=== PATIENT | male | born 1940 | race Caucasian/White ===

== ENCOUNTER 2017-07-17 03:01 | Inpatient (IN) | payer MEDICARE, BC ==
[~2017-07-17] VITALS: Ht 180.3 cm; Wt 126.3 kg
[2017-07-17] VITALS (18 sets, daily range): BP systolic 73–148; BP diastolic 46–91
[~2017-07-17 03:01] MED LIST: ADLT ASA LOW81 MG PO; ALBUTEROL SUL0.083 % IN; ALLOPURINOL300 MG PO; ALPH-E400 UNIT PO; ATENOLOL25 MG PO; AUGMENTIN875TAB PO; BACTRIM DS1 TAB PO; CENTRU2 PO; CETIRIZ/PSE1 TAB PO; CHERATUSSI1 OR; CHILD ASA81 MG PO; CIPROFLOXACN500 MG PO; DILAUDID 2MG2 MG/TA1 PO; DURAGESIC25 MCG/PAT TD; ELIQUIS5 MG PO; FA-80.8 MG PO; FLEXERIL10 MG PO; FLEXERIL5 MG PO; FLONASE NASAL50 MCG; FLUARIX QUADRIV1 INJ IM; FOLIC ACID1 MG PO; GLIPIZIDE5 MG PO; HYDRALAZINE25 MG PO; HYDRALAZINE50 MG PO; HYDROCHLOROT12.5 MG PO; HYDROCO/APAP1 TA9 PO; ISOSORB MONO30 MG PO; ISOSORBIDE MONO30 MG PO; KLOR-CON 1010 ME1 PO; KP FOLIC ACID800 MCG PO; LASIX 40 MG TAB40 MG PO; LASIX 40 MG40 MG/TAB PO; LEVAQUIN250 MG PO; LEVAQUIN500 MG PO; LEVAQUIN750 MG PO; LIDODERM5 % TD; LISINOP/HCTZ1 TAB PO; LISINOPRIL10 MG PO; LOMOTIL2.5 MG PO; LOPRESSOR50 M1 PO; LORTAB 10 PO; LORTAB 7.5 PO; LORTAB 7.57.5 MG PO; METFORMIN HCL1000 M1 PO; METFORMIN500 MG PO; METOLAZONE2.5 MG PO; METOPROLOL SUCC50 MG PO; MICRO-K10 ME1 PO; PERCOCET 5/325M1 TAB PO; PERSANTINE25 MG PO; POTASSIUM GLUC595 MG PO; POTASSIUM GLUCO80 MG PO; PRILOSEC OTC20 MG PO; PRILOSEC20 MG; PRILOSEC20 MG PO; PROAIR HFA IN; PROBIOTIC1 TAB PO; SELENIMIN PO; SELENIUM200 MC1 PO; TAMSULOSIN HCL0.4 MG PO; TAMSULOSIN0.4 MG PO; ZANTAC 150 MAX150 MG PO; ZANTAC150 M1 PO; ZITHROMAX250 MG PO; ZOVIRAX800 MG PO; ZPAK PO; ZYRTEC-D ALG OR; [UNRECOGNIZED DRUG - CODE] PO; [UNRECOGNIZED DRUG - OTHER] PO
[2017-07-17 03:42] LABS: HEMATOCRIT 38.8 % (39.0-50.0); HEMOGLOBIN 12.1 g/dl (14.0-18.0); IMMATURE GRANULOCYTES 0.9 % (0.0-1.0); MEAN CELL VOLUME 91.7 fL CALC (80.0-100.0); MEAN CORPUSCULAR HGB 28.6 pG CALC (26.0-32.0); MEAN CORPUSCULAR HGB CONC 31.2 g/L CALC (32.0-36.0); NEUT# 4.52 thou/uL (1.82-7.42); RED BLOOD COUNT 4.23 mill/uL (4.70-6.10); RED CELL DISTRI WIDTH 14.8 % (11.5-15.5)
[2017-07-17 04:01] LABS: ALBUMIN 3.8 g/dL (3.2-5.0); ALKALINE PHOSPHATASE 86 u/l (38-126); ANION GAP 15 (6-22 (CALC)); BILIRUBIN, TOTAL 0.8 mg/dL (0.0-1.4); BUN 31 mg/dL (8-23); BUN/CREATININE RATIO 31 (12-20 (CALC)); CARBON DIOXIDE 31 mmol/l (22-30); CHLORIDE 98 mmol/l (95-108); GFR > 60 ML/MIN (>=60 (CALC)); GFR FOR AFR.AMER. > 60 ML/MIN (>=60 (CALC)); GLUCOSE 180 mg/dL (82-115); POTASSIUM 4.5 mmol/l (3.5-5.1); SGOT/AST 17 u/l (19-48); SGPT/ALT 38 u/l (11-66); SODIUM 139 mmol/l (137-146); TOTAL PROTEIN 6.2 g/dL (6.3-8.2)
[2017-07-17 04:02] LABS: ACT PARTIAL THROMBO TIME 27.5 SECONDS (20.0-32.5); PROTHROMBIN TIME 10.6 SECONDS (9.0-12.5)
[2017-07-17 04:12] LABS: MYOGLOBIN 53 ng/mL (0 - 121)
[2017-07-17 06:17] LABS: URINE BILIRUBIN - DIPSTICK NEGATIVE (NEGATIVE); URINE BLOOD DIPSTICK NEGATIVE (NEGATIVE); URINE CLARITY CLEAR; URINE COLOR YELLOW; URINE GLUCOSE - DIPSTICK NEGATIVE (NEGATIVE); URINE KETONE NEGATIVE (NEGATIVE); URINE LEUK ESTERASE NEGATIVE (NEGATIVE); URINE NITRITE - DIPSTICK NEGATIVE (Negative); URINE PROTEIN - DIPSTICK NEGATIVE (NEG-TRACE); URINE UROBILINOGEN - DIPSTICK 0.2 E.U./dL (0.2)
[2017-07-18 00:01] VITALS: BP 138/69
[2017-07-18 01:55] VITALS: BP 145/69
[2017-07-18 04:05] VITALS: BP 129/74
[2017-07-18 05:21] LABS: ANION GAP 15 (6-22 (CALC)); BUN 30 mg/dL (8-23); BUN/CREATININE RATIO 31 (12-20 (CALC)); CARBON DIOXIDE 32 mmol/l (22-30); CHLORIDE 93 mmol/l (95-108); GFR > 60 ML/MIN (>=60 (CALC)); GFR FOR AFR.AMER. > 60 ML/MIN (>=60 (CALC)); GLUCOSE 274 mg/dL (82-115); POTASSIUM 4.7 mmol/l (3.5-5.1); SODIUM 136 mmol/l (137-146)
[2017-07-18 05:58] LABS: HEMATOCRIT 37.6 % (39.0-50.0); MEAN CELL VOLUME 90.8 fL CALC (80.0-100.0); MEAN CORPUSCULAR HGB CONC 31.9 g/L CALC (32.0-36.0); NEUT# 5.93 thou/uL (1.82-7.42); RED BLOOD COUNT 4.14 mill/uL (4.70-6.10); RED CELL DISTRI WIDTH 14.6 % (11.5-15.5)
[2017-07-18 11:01] VITALS: BP 135/77
[2017-07-18 15:35] VITALS: BP 123/74
[2017-07-18 19:20] VITALS: BP 161/85
[2017-07-19] VITALS (8 sets, daily range): BP systolic 99–143; BP diastolic 69–98
[2017-07-19 06:08] LABS: HEMATOCRIT 38.7 % (39.0-50.0); HEMOGLOBIN 12.1 g/dl (14.0-18.0); IMMATURE GRANULOCYTES 0.7 % (0.0-1.0); MEAN CELL VOLUME 91.1 fL CALC (80.0-100.0); MEAN CORPUSCULAR HGB 28.5 pG CALC (26.0-32.0); MEAN CORPUSCULAR HGB CONC 31.3 g/L CALC (32.0-36.0); NEUT# 6.64 thou/uL (1.82-7.42); RED BLOOD COUNT 4.25 mill/uL (4.70-6.10); RED CELL DISTRI WIDTH 14.7 % (11.5-15.5)
[2017-07-19 06:29] LABS: ALBUMIN 3.7 g/dL (3.2-5.0); ALKALINE PHOSPHATASE 74 u/l (38-126); ANION GAP 14 (6-22 (CALC)); BILIRUBIN, TOTAL 0.5 mg/dL (0.0-1.4); BUN 30 mg/dL (8-23); BUN/CREATININE RATIO 30 (12-20 (CALC)); CALCIUM 9.4 mg/dL (8.4-10.2); CARBON DIOXIDE 37 mmol/l (22-30); CHLORIDE 94 mmol/l (95-108); GFR > 60 ML/MIN (>=60 (CALC)); GFR FOR AFR.AMER. > 60 ML/MIN (>=60 (CALC)); GLUCOSE 121 mg/dL (82-115); POTASSIUM 4.5 mmol/l (3.5-5.1); SGOT/AST 17 u/l (19-48); SGPT/ALT 38 u/l (11-66); SODIUM 141 mmol/l (137-146); TOTAL PROTEIN 6.2 g/dL (6.3-8.2)
[2017-07-20 03:50] VITALS: BP 125/84
[2017-07-20 06:27] LABS: HEMATOCRIT 38.7 % (39.0-50.0); IMMATURE GRANULOCYTES 0.8 % (0.0-1.0); MEAN CELL VOLUME 91.5 fL CALC (80.0-100.0); MEAN CORPUSCULAR HGB 28.4 pG CALC (26.0-32.0); NEUT# 4.31 thou/uL (1.82-7.42); RED BLOOD COUNT 4.23 mill/uL (4.70-6.10)
[2017-07-20 07:20] LABS: ANION GAP 15 (6-22 (CALC)); BUN 35 mg/dL (8-23); BUN/CREATININE RATIO 32 (12-20 (CALC)); CALCIUM 9.2 mg/dL (8.4-10.2); CARBON DIOXIDE 34 mmol/l (22-30); CHLORIDE 93 mmol/l (95-108); CREATININE 1.1 mg/dL (0.7-1.3); GFR > 60 ML/MIN (>=60 (CALC)); GFR FOR AFR.AMER. > 60 ML/MIN (>=60 (CALC)); GLUCOSE 141 mg/dL (82-115); POTASSIUM 4.7 mmol/l (3.5-5.1); SODIUM 137 mmol/l (137-146)
[2017-07-20] MEDS ORDERED: ALBUTEROL SUL0.083 % IN (08:51)
[2017-07-20 09:14] VITALS: BP 137/72
[2017-07-20 10:04] VITALS: BP 137/72
== END 2017-07-20 12:17 | disposition home or self-care (01) | DRG 292 ==
LOC: ED 03:01 → ED-I 06:33 → ED 06:50 → ICU 06:51 → MS2 06:51
PROVIDERS: Emergency Medicine; ADMIT Internal Medicine Geriatric Medicine; ATTEND Internal Medicine Geriatric Medicine
DX: I11.0 Hypertensive heart disease with heart failure (principal); C34.90 Malignant neoplasm of unspecified part of unspecified bronchus or lung; J44.9 Chronic obstructive pulmonary disease, unspecified; E11.9 Type 2 diabetes mellitus without complications; I48.91 Unspecified atrial fibrillation; I50.23 Acute on chronic systolic (congestive) heart failure; I25.10 Atherosclerotic heart disease of native coronary artery without angina pectoris; I25.5 Ischemic cardiomyopathy; K21.9 Gastro-esophageal reflux disease without esophagitis; Z79.899 Other long term (current) drug therapy; Z92.21 Personal history of antineoplastic chemotherapy; Z92.3 Personal history of irradiation; Z95.5 Presence of coronary angioplasty implant and graft; Z90.2 Acquired absence of lung [part of]
CPT/HCPCS: Q9967

== ENCOUNTER 2017-07-22 11:15 | Inpatient (IN) | payer MEDICARE, BC ==
[~2017-07-22] VITALS: Ht 180.3 cm; Wt 124.1 kg
[2017-07-22] VITALS (17 sets, daily range): BP systolic 73–161; BP diastolic 42–84
[2017-07-22 12:15] LABS: HEMATOCRIT 37.2 % (39.0-50.0); HEMOGLOBIN 11.8 g/dl (14.0-18.0); IMMATURE GRANULOCYTES 1.5 % (0.0-1.0); MEAN CELL VOLUME 90.7 fL CALC (80.0-100.0); MEAN CORPUSCULAR HGB 28.8 pG CALC (26.0-32.0); MEAN CORPUSCULAR HGB CONC 31.7 g/L CALC (32.0-36.0); NEUT# 6.72 thou/uL (1.82-7.42); RED BLOOD COUNT 4.1 mill/uL (4.70-6.10); RED CELL DISTRI WIDTH 14.7 % (11.5-15.5)
[2017-07-22 12:27] LABS: ANION GAP 12 (6-22 (CALC)); BUN 37 mg/dL (8-23); BUN/CREATININE RATIO 35 (12-20 (CALC)); CALCIUM 9.1 mg/dL (8.4-10.2); CARBON DIOXIDE 33 mmol/l (22-30); CHLORIDE 94 mmol/l (95-108); GFR > 60 ML/MIN (>=60 (CALC)); GFR FOR AFR.AMER. > 60 ML/MIN (>=60 (CALC)); GLUCOSE 176 mg/dL (82-115); POTASSIUM 4.5 mmol/l (3.5-5.1); SODIUM 134 mmol/l (137-146)
[2017-07-22 13:17] LABS: URINE BILIRUBIN - DIPSTICK NEGATIVE (NEGATIVE); URINE BLOOD DIPSTICK NEGATIVE (NEGATIVE); URINE CLARITY CLEAR; URINE COLOR YELLOW; URINE GLUCOSE - DIPSTICK NEGATIVE (NEGATIVE); URINE KETONE NEGATIVE (NEGATIVE); URINE LEUK ESTERASE NEGATIVE (Negative); URINE NITRITE - DIPSTICK NEGATIVE (Negative); URINE PH 5.5 (4.5-8.0); URINE PROTEIN - DIPSTICK NEGATIVE (NEG-TRACE); URINE SPECIFIC GRAVITY 1.015; URINE UROBILINOGEN - DIPSTICK 0.2 E.U./dL (0.2)
[2017-07-23] VITALS (9 sets, daily range): BP systolic 108–156; BP diastolic 70–85
[2017-07-23 06:12] LABS: HEMATOCRIT 39.9 % (39.0-50.0); HEMOGLOBIN 12.7 g/dl (14.0-18.0); MEAN CELL VOLUME 90.3 fL CALC (80.0-100.0); MEAN CORPUSCULAR HGB 28.7 pG CALC (26.0-32.0); MEAN CORPUSCULAR HGB CONC 31.8 g/L CALC (32.0-36.0); NEUT# 10.25 thou/uL (1.82-7.42); RED BLOOD COUNT 4.42 mill/uL (4.70-6.10); RED CELL DISTRI WIDTH 14.7 % (11.5-15.5)
[2017-07-23 06:20] LABS: ANION GAP 15 (6-22 (CALC)); BUN 35 mg/dL (8-23); BUN/CREATININE RATIO 34 (12-20 (CALC)); CALCIUM 9.3 mg/dL (8.4-10.2); CARBON DIOXIDE 32 mmol/l (22-30); CHLORIDE 93 mmol/l (95-108); GFR > 60 ML/MIN (>=60 (CALC)); GFR FOR AFR.AMER. > 60 ML/MIN (>=60 (CALC)); GLUCOSE 259 mg/dL (82-115); MAGNESIUM 1.8 mg/dL (1.6-2.3); POTASSIUM 4.7 mmol/l (3.5-5.1); SODIUM 136 mmol/l (137-146)
[2017-07-24 04:27] VITALS: BP 128/81
[2017-07-24 05:29] LABS: HEMATOCRIT 39.5 % (39.0-50.0); HEMOGLOBIN 12.4 g/dl (14.0-18.0); MEAN CELL VOLUME 90.8 fL CALC (80.0-100.0); MEAN CORPUSCULAR HGB 28.5 pG CALC (26.0-32.0); MEAN CORPUSCULAR HGB CONC 31.4 g/L CALC (32.0-36.0); RED BLOOD COUNT 4.35 mill/uL (4.70-6.10); RED CELL DISTRI WIDTH 14.8 % (11.5-15.5)
[2017-07-24 05:43] LABS: ANION GAP 15 (6-22 (CALC)); BUN 38 mg/dL (8-23); BUN/CREATININE RATIO 36 (12-20 (CALC)); CALCIUM 9.4 mg/dL (8.4-10.2); CARBON DIOXIDE 35 mmol/l (22-30); CHLORIDE 92 mmol/l (95-108); CREATININE 1.1 mg/dL (0.7-1.3); GFR > 60 ML/MIN (>=60 (CALC)); GFR FOR AFR.AMER. > 60 ML/MIN (>=60 (CALC)); GLUCOSE 157 mg/dL (82-115); MAGNESIUM 1.9 mg/dL (1.6-2.3); POTASSIUM 4.2 mmol/l (3.5-5.1); SODIUM 138 mmol/l (137-146)
[2017-07-24 08:09] VITALS: BP 131/86
[2017-07-24 11:15] VITALS: BP 140/70
[2017-07-24 15:40] VITALS: BP 123/73
[2017-07-24 19:10] VITALS: BP 119/85
[2017-07-25 04:25] VITALS: BP 119/78
[2017-07-25 05:16] LABS: ANION GAP 15 (6-22 (CALC)); BUN 43 mg/dL (8-23); BUN/CREATININE RATIO 36 (12-20 (CALC)); CALCIUM 9.1 mg/dL (8.4-10.2); CARBON DIOXIDE 35 mmol/l (22-30); CHLORIDE 92 mmol/l (95-108); CREATININE 1.2 mg/dL (0.7-1.3); GFR 59 ML/MIN (>=60 (CALC)); GFR FOR AFR.AMER. > 60 ML/MIN (>=60 (CALC)); GLUCOSE 220 mg/dL (82-115); SODIUM 138 mmol/l (137-146)
[2017-07-25 05:27] LABS: HEMATOCRIT 40.6 % (39.0-50.0); HEMOGLOBIN 12.6 g/dl (14.0-18.0); MEAN CELL VOLUME 91.9 fL CALC (80.0-100.0); MEAN CORPUSCULAR HGB 28.5 pG CALC (26.0-32.0); RED BLOOD COUNT 4.42 mill/uL (4.70-6.10)
[2017-07-25 07:41] VITALS: BP 123/82
[2017-07-25 11:05] VITALS: BP 111/72
[2017-07-25] MEDS ORDERED: ELIQUIS2.5 MG PO (13:50)
[2017-07-25] MEDS ORDERED: LISINOPRIL2.5 MG PO (13:50)
[2017-07-25] MEDS ORDERED: ALDACTONE25 MG PO (13:50)
[2017-07-25] MEDS ORDERED: LASIX 40 MG40 MG/TAB PO (13:51)
[2017-07-25] MEDS ORDERED: BIOTUSSIN PO (13:51)
[2017-07-25] MEDS ORDERED: ZPAK PO (13:52)
[2017-07-25] MEDS ORDERED: MEDDOSEPAK PO (13:52)
== END 2017-07-25 14:40 | disposition home or self-care (01) | DRG 292 ==
LOC: ICU 11:15 → MS2 07-23 14:10
PROVIDERS: Internal Medicine; ADMIT Internal Medicine Geriatric Medicine; ATTEND Internal Medicine
DX: I11.0 Hypertensive heart disease with heart failure (principal); J44.1 Chronic obstructive pulmonary disease with (acute) exacerbation; J96.11 Chronic respiratory failure with hypoxia; E11.65 Type 2 diabetes mellitus with hyperglycemia; Z99.81 Dependence on supplemental oxygen; C34.90 Malignant neoplasm of unspecified part of unspecified bronchus or lung; I48.91 Unspecified atrial fibrillation; D64.9 Anemia, unspecified; I50.23 Acute on chronic systolic (congestive) heart failure; I25.10 Atherosclerotic heart disease of native coronary artery without angina pectoris; N40.0 Benign prostatic hyperplasia without lower urinary tract symptoms; I25.5 Ischemic cardiomyopathy; Z79.01 Long term (current) use of anticoagulants; Z95.5 Presence of coronary angioplasty implant and graft; Z79.899 Other long term (current) drug therapy; Z92.3 Personal history of irradiation; Z87.891 Personal history of nicotine dependence

== ENCOUNTER 2017-08-11 07:44 | Inpatient (IN) | payer MEDICARE, BC ==
[~2017-08-11] VITALS: Ht 180.3 cm; Wt 123.2 kg
[~2017-08-11 07:44] MED LIST changes: +ALDACTONE25 MG PO; +BIOTUSSIN PO; +ELIQUIS2.5 MG PO; +LISINOPRIL2.5 MG PO; +MEDDOSEPAK PO
[2017-08-11 08:43] LABS: HEMATOCRIT 39.6 % (39.0-50.0); HEMOGLOBIN 12.8 g/dl (14.0-18.0); IMMATURE GRANULOCYTES 0.9 % (0.0-1.0); MEAN CELL VOLUME 88.8 fL CALC (80.0-100.0); MEAN CORPUSCULAR HGB 28.7 pG CALC (26.0-32.0); MEAN CORPUSCULAR HGB CONC 32.3 g/L CALC (32.0-36.0); NEUT# 5.71 thou/uL (1.82-7.42); RED BLOOD COUNT 4.46 mill/uL (4.70-6.10); RED CELL DISTRI WIDTH 15.1 % (11.5-15.5)
[2017-08-11 09:10] LABS: ALKALINE PHOSPHATASE 88 u/l (38-126); AMYLASE 104 u/l (30-110); ANION GAP 19 (6-22 (CALC)); BILIRUBIN, TOTAL 0.7 mg/dL (0.0-1.4); BUN 38 mg/dL (8-23); BUN/CREATININE RATIO 26 (12-20 (CALC)); CALCIUM 8.8 mg/dL (8.4-10.2); CARBON DIOXIDE 31 mmol/l (22-30); CHLORIDE 89 mmol/l (95-108); CREATININE 1.4 mg/dL (0.7-1.3); GFR 50 ML/MIN (>=60 (CALC)); GFR FOR AFR.AMER. 60 ML/MIN (>=60 (CALC)); GLUCOSE 127 mg/dL (82-115); LIPASE 430 u/l (23-300); POTASSIUM 4.6 mmol/l (3.5-5.1); SGOT/AST 20 u/l (19-48); SGPT/ALT 37 u/l (11-66); SODIUM 135 mmol/l (137-146); TOTAL PROTEIN 6.7 g/dL (6.3-8.2)
[2017-08-11 09:18] LABS: MYOGLOBIN 100 ng/mL (0 - 121)
[2017-08-11] MEDS ORDERED: METOLAZONE2.5 MG PO (09:43)
[2017-08-11 10:00] LABS: URINE BILIRUBIN - DIPSTICK NEGATIVE (NEGATIVE); URINE BLOOD DIPSTICK NEGATIVE (NEGATIVE); URINE CLARITY CLEAR; URINE COLOR YELLOW; URINE GLUCOSE - DIPSTICK NEGATIVE (NEGATIVE); URINE KETONE NEGATIVE (NEGATIVE); URINE LEUK ESTERASE NEGATIVE (NEGATIVE); URINE NITRITE - DIPSTICK NEGATIVE (Negative); URINE PH 6.5 (4.5-8.0); URINE PROTEIN - DIPSTICK NEGATIVE (NEG-TRACE); URINE SPECIFIC GRAVITY <=1.005; URINE UROBILINOGEN - DIPSTICK 0.2 E.U./dL (0.2)
[2017-08-11 11:08] VITALS: BP 120/66
[2017-08-11 15:32] VITALS: BP 121/73
[2017-08-11 18:59] VITALS: BP 116/58
[2017-08-11 23:46] VITALS: BP 117/70
[2017-08-12 04:15] VITALS: BP 115/71
[2017-08-12 05:52] LABS: HEMATOCRIT 39.2 % (39.0-50.0); HEMOGLOBIN 12.4 g/dl (14.0-18.0); IMMATURE GRANULOCYTES 0.7 % (0.0-1.0); MEAN CELL VOLUME 90.3 fL CALC (80.0-100.0); MEAN CORPUSCULAR HGB 28.6 pG CALC (26.0-32.0); MEAN CORPUSCULAR HGB CONC 31.6 g/L CALC (32.0-36.0); NEUT# 5.12 thou/uL (1.82-7.42); RED BLOOD COUNT 4.34 mill/uL (4.70-6.10); RED CELL DISTRI WIDTH 15.1 % (11.5-15.5)
[2017-08-12 05:55] LABS: ALBUMIN 3.9 g/dL (3.2-5.0); ALKALINE PHOSPHATASE 84 u/l (38-126); ANION GAP 18 (6-22 (CALC)); BILIRUBIN, TOTAL 0.6 mg/dL (0.0-1.4); BUN 31 mg/dL (8-23); BUN/CREATININE RATIO 24 (12-20 (CALC)); CALCIUM 8.8 mg/dL (8.4-10.2); CARBON DIOXIDE 35 mmol/l (22-30); CHLORIDE 90 mmol/l (95-108); CREATININE 1.3 mg/dL (0.7-1.3); GFR 54 ML/MIN (>=60 (CALC)); GFR FOR AFR.AMER. > 60 ML/MIN (>=60 (CALC)); GLUCOSE 85 mg/dL (82-115); POTASSIUM 4.6 mmol/l (3.5-5.1); SGOT/AST 18 u/l (19-48); SGPT/ALT 37 u/l (11-66); SODIUM 138 mmol/l (137-146); TOTAL PROTEIN 6.6 g/dL (6.3-8.2)
[2017-08-12 08:14] VITALS: BP 126/72
[2017-08-12 11:00] VITALS: BP 121/75
[2017-08-12 19:50] VITALS: BP 109/67
[2017-08-12 23:25] VITALS: BP 94/66
[2017-08-13 04:50] VITALS: BP 110/69
[2017-08-13 06:05] LABS: HEMATOCRIT 39.2 % (39.0-50.0); HEMOGLOBIN 12.3 g/dl (14.0-18.0); IMMATURE GRANULOCYTES 0.7 % (0.0-1.0); MEAN CORPUSCULAR HGB 28.5 pG CALC (26.0-32.0); MEAN CORPUSCULAR HGB CONC 31.4 g/L CALC (32.0-36.0); NEUT# 5.79 thou/uL (1.82-7.42); RED BLOOD COUNT 4.31 mill/uL (4.70-6.10)
[2017-08-13 06:14] LABS: ALBUMIN 3.7 g/dL (3.2-5.0); CREATININE 1.5 mg/dL (0.7-1.3); TOTAL PROTEIN 6.4 g/dL (6.3-8.2)
[2017-08-13 06:42] LABS: BILIRUBIN, TOTAL 0.7 mg/dL (0.0-1.4)
[2017-08-13 06:43] LABS: POTASSIUM 5.4 mmol/l (3.5-5.1)
[2017-08-13 08:19] VITALS: BP 98/67
[2017-08-13 12:00] VITALS: BP 96/60
[2017-08-13 12:51] LABS: ANION GAP 17 (6-22 (CALC)); BUN 35 mg/dL (8-23); BUN/CREATININE RATIO 27 (12-20 (CALC)); CALCIUM 8.7 mg/dL (8.4-10.2); CARBON DIOXIDE 34 mmol/l (22-30); CHLORIDE 89 mmol/l (95-108); CREATININE 1.3 mg/dL (0.7-1.3); GFR 54 ML/MIN (>=60 (CALC)); GFR FOR AFR.AMER. > 60 ML/MIN (>=60 (CALC)); GLUCOSE 112 mg/dL (82-115); POTASSIUM 4.4 mmol/l (3.5-5.1); SODIUM 135 mmol/l (137-146)
[2017-08-13 15:09] VITALS: BP 92/62
[2017-08-13 18:55] VITALS: BP 110/68
[2017-08-13 20:05] VITALS: BP 110/68; BP 188/86
[2017-08-14 00:20] VITALS: BP 117/68
[2017-08-14 04:50] VITALS: BP 115/66
[2017-08-14 06:03] LABS: HEMATOCRIT 37.2 % (39.0-50.0); HEMOGLOBIN 11.6 g/dl (14.0-18.0); IMMATURE GRANULOCYTES 0.5 % (0.0-1.0); MEAN CELL VOLUME 90.1 fL CALC (80.0-100.0); MEAN CORPUSCULAR HGB 28.1 pG CALC (26.0-32.0); MEAN CORPUSCULAR HGB CONC 31.2 g/L CALC (32.0-36.0); NEUT# 5.55 thou/uL (1.82-7.42); RED BLOOD COUNT 4.13 mill/uL (4.70-6.10)
[2017-08-14 06:09] LABS: ALBUMIN 3.5 g/dL (3.2-5.0); ALKALINE PHOSPHATASE 83 u/l (38-126); ANION GAP 15 (6-22 (CALC)); BILIRUBIN, TOTAL 0.5 mg/dL (0.0-1.4); BUN 32 mg/dL (8-23); BUN/CREATININE RATIO 28 (12-20 (CALC)); CARBON DIOXIDE 33 mmol/l (22-30); CHLORIDE 91 mmol/l (95-108); CREATININE 1.2 mg/dL (0.7-1.3); GFR 59 ML/MIN (>=60 (CALC)); GFR FOR AFR.AMER. > 60 ML/MIN (>=60 (CALC)); GLUCOSE 152 mg/dL (82-115); POTASSIUM 4.7 mmol/l (3.5-5.1); SGOT/AST 19 u/l (19-48); SGPT/ALT 30 u/l (11-66); SODIUM 135 mmol/l (137-146)
[2017-08-14 12:00] VITALS: BP 109/62
[2017-08-14 16:07] VITALS: BP 100/70
[2017-08-14 19:06] VITALS: BP 138/75; BP 146/78
[2017-08-14 23:40] VITALS: BP 96/66
[2017-08-15 04:37] VITALS: BP 121/74
[2017-08-15 05:23] LABS: HEMOGLOBIN 11.5 g/dl (14.0-18.0); IMMATURE GRANULOCYTES 0.8 % (0.0-1.0); MEAN CELL VOLUME 90.7 fL CALC (80.0-100.0); MEAN CORPUSCULAR HGB 28.2 pG CALC (26.0-32.0); MEAN CORPUSCULAR HGB CONC 31.1 g/L CALC (32.0-36.0); NEUT# 5.04 thou/uL (1.82-7.42); RED BLOOD COUNT 4.08 mill/uL (4.70-6.10)
[2017-08-15 05:28] LABS: ALBUMIN 3.5 g/dL (3.2-5.0); ALKALINE PHOSPHATASE 85 u/l (38-126); ANION GAP 15 (6-22 (CALC)); BILIRUBIN, TOTAL 0.6 mg/dL (0.0-1.4); BUN 27 mg/dL (8-23); BUN/CREATININE RATIO 22 (12-20 (CALC)); CALCIUM 8.9 mg/dL (8.4-10.2); CARBON DIOXIDE 36 mmol/l (22-30); CHLORIDE 89 mmol/l (95-108); CREATININE 1.2 mg/dL (0.7-1.3); GFR 59 ML/MIN (>=60 (CALC)); GFR FOR AFR.AMER. > 60 ML/MIN (>=60 (CALC)); GLUCOSE 106 mg/dL (82-115); POTASSIUM 4.4 mmol/l (3.5-5.1); SGOT/AST 18 u/l (19-48); SGPT/ALT 35 u/l (11-66); SODIUM 136 mmol/l (137-146); TOTAL PROTEIN 6.3 g/dL (6.3-8.2)
[2017-08-15 07:00] VITALS: BP 125/83
[2017-08-15 12:32] VITALS: BP 113/72
[2017-08-15 16:07] VITALS: BP 107/66
[2017-08-15 19:00] VITALS: BP 108/65
[2017-08-15 23:50] VITALS: BP 133/85
[2017-08-16 03:35] VITALS: BP 116/70
[2017-08-16 06:14] LABS: HEMATOCRIT 37.9 % (39.0-50.0); HEMOGLOBIN 11.9 g/dl (14.0-18.0); IMMATURE GRANULOCYTES 0.9 % (0.0-1.0); MEAN CELL VOLUME 89.8 fL CALC (80.0-100.0); MEAN CORPUSCULAR HGB 28.2 pG CALC (26.0-32.0); MEAN CORPUSCULAR HGB CONC 31.4 g/L CALC (32.0-36.0); NEUT# 4.91 thou/uL (1.82-7.42); RED BLOOD COUNT 4.22 mill/uL (4.70-6.10); RED CELL DISTRI WIDTH 15.1 % (11.5-15.5)
[2017-08-16 06:27] LABS: ALBUMIN 3.7 g/dL (3.2-5.0); ALKALINE PHOSPHATASE 92 u/l (38-126); ANION GAP 16 (6-22 (CALC)); BILIRUBIN, TOTAL 0.5 mg/dL (0.0-1.4); BUN 25 mg/dL (8-23); BUN/CREATININE RATIO 23 (12-20 (CALC)); CALCIUM 9.2 mg/dL (8.4-10.2); CARBON DIOXIDE 34 mmol/l (22-30); CHLORIDE 89 mmol/l (95-108); CREATININE 1.1 mg/dL (0.7-1.3); GFR > 60 ML/MIN (>=60 (CALC)); GFR FOR AFR.AMER. > 60 ML/MIN (>=60 (CALC)); GLUCOSE 100 mg/dL (82-115); POTASSIUM 4.3 mmol/l (3.5-5.1); SGOT/AST 19 u/l (19-48); SGPT/ALT 32 u/l (11-66); SODIUM 134 mmol/l (137-146); TOTAL PROTEIN 6.3 g/dL (6.3-8.2)
[2017-08-16 07:57] VITALS: BP 108/66
[2017-08-16 08:00] VITALS: BP 108/66
[2017-08-16] MEDS ORDERED: FENTANYL25 MCG/HR TD (08:46)
[2017-08-16] MEDS ORDERED: DILAUDID4 MG PO (08:47)
== END 2017-08-16 11:05 | disposition home or self-care (01) | DRG 175 ==
LOC: ED 07:44 → ED-I 09:45 → ED 10:11 → ED-I 10:12 → MS2 10:12
PROVIDERS: Emergency Medicine; ADMIT Internal Medicine Geriatric Medicine; ATTEND Internal Medicine Geriatric Medicine
DX: I26.99 Other pulmonary embolism without acute cor pulmonale (principal); I50.23 Acute on chronic systolic (congestive) heart failure; C79.9 Secondary malignant neoplasm of unspecified site; C34.32 Malignant neoplasm of lower lobe, left bronchus or lung; I11.0 Hypertensive heart disease with heart failure; I48.91 Unspecified atrial fibrillation; G89.3 Neoplasm related pain (acute) (chronic); E11.9 Type 2 diabetes mellitus without complications; J44.9 Chronic obstructive pulmonary disease, unspecified; I25.10 Atherosclerotic heart disease of native coronary artery without angina pectoris; K21.9 Gastro-esophageal reflux disease without esophagitis; I25.5 Ischemic cardiomyopathy; K64.9 Unspecified hemorrhoids; F41.9 Anxiety disorder, unspecified; Z92.3 Personal history of irradiation; Z92.21 Personal history of antineoplastic chemotherapy; Z95.5 Presence of coronary angioplasty implant and graft; Z90.2 Acquired absence of lung [part of]
CPT/HCPCS: G0378; J1650; Q9967

== ENCOUNTER 2017-08-17 10:31 | Inpatient (IN) | payer MEDICARE, BC ==
[~2017-08-17] VITALS: Ht 180.3 cm; Wt 127.1 kg
[2017-08-17] VITALS (7 sets, daily range): BP systolic 73–124; BP diastolic 45–90
[~2017-08-17 10:31] MED LIST changes: +DILAUDID4 MG PO; +FENTANYL25 MCG/HR TD
--- NOTE | 2017-08-17 10:31 | NUR ---
PT TO ROOM FOR TREATMENT VIA EMS
[2017-08-17 11:00] LABS: HEMATOCRIT 33.8 % (39.0-50.0); HEMOGLOBIN 10.9 g/dl (14.0-18.0); IMMATURE GRANULOCYTES 0.8 % (0.0-1.0); MEAN CELL VOLUME 88.5 fL CALC (80.0-100.0); MEAN CORPUSCULAR HGB 28.5 pG CALC (26.0-32.0); MEAN CORPUSCULAR HGB CONC 32.2 g/L CALC (32.0-36.0); NEUT# 6.66 thou/uL (1.82-7.42); RED BLOOD COUNT 3.82 mill/uL (4.70-6.10); RED CELL DISTRI WIDTH 15.1 % (11.5-15.5)
[2017-08-17 11:17] LABS: ALBUMIN 3.6 g/dL (3.2-5.0); ALKALINE PHOSPHATASE 78 u/l (38-126); ANION GAP 15 (6-22 (CALC)); BILIRUBIN, TOTAL 0.5 mg/dL (0.0-1.4); BUN 31 mg/dL (8-23); BUN/CREATININE RATIO 24 (12-20 (CALC)); CALCIUM 9.1 mg/dL (8.4-10.2); CARBON DIOXIDE 33 mmol/l (22-30); CHLORIDE 87 mmol/l (95-108); CREATININE 1.3 mg/dL (0.7-1.3); GFR 54 ML/MIN (>=60 (CALC)); GFR FOR AFR.AMER. > 60 ML/MIN (>=60 (CALC)); GLUCOSE 171 mg/dL (82-115); POTASSIUM 4.7 mmol/l (3.5-5.1); SGOT/AST 21 u/l (19-48); SGPT/ALT 35 u/l (11-66); SODIUM 131 mmol/l (137-146); TOTAL PROTEIN 6.6 g/dL (6.3-8.2)
--- NOTE | 2017-08-17 11:20 | NUR ---
PATIENT ALERT ABLE TO RESPOND TO QUESTIONS APPROPRIATLY. MD AWARE OF B/P AND PATIENT'S REQUEST FOR PAIN MEDICATION. AWAITING NEW ORDERS.
[2017-08-17 11:26] LABS: MYOGLOBIN 131 ng/mL (0 - 121)
--- NOTE | 2017-08-17 12:26 | NUR ---
SBAR PRINTED TO FLOOR
--- NOTE | 2017-08-17 12:43 | NUR ---
PATIENT MEDICATED PER MD ORDER, TOLERATED WELL. INFORMED OF ADMIT ORDERS.
--- NOTE | 2017-08-17 12:49 | NUR ---
DURAGESIC PATCH FROM LEFT ANTERIOR CHEST WALL REMOVED PER Kimmy CARDOZO RN WITH THIS OFFICE MACHINES TEACHER IN ATTENDANCE, PLACED IN SHARPS BOX.
--- NOTE | 2017-08-17 13:20 | NUR ---
REPORT GIVEN TO IVETH MALIK LPN
[2017-08-17 13:27] LABS: URINE BILIRUBIN - DIPSTICK NEGATIVE (NEGATIVE); URINE BLOOD DIPSTICK NEGATIVE (NEGATIVE); URINE CLARITY CLEAR; URINE COLOR YELLOW; URINE GLUCOSE - DIPSTICK NEGATIVE (NEGATIVE); URINE KETONE NEGATIVE (NEGATIVE); URINE LEUK ESTERASE NEGATIVE (NEGATIVE); URINE NITRITE - DIPSTICK NEGATIVE (Negative); URINE PROTEIN - DIPSTICK NEGATIVE (NEG-TRACE); URINE SPECIFIC GRAVITY 1.015; URINE UROBILINOGEN - DIPSTICK 0.2 E.U./dL (0.2)
--- NOTE | 2017-08-17 14:00 | NUR ---
PATIENT TRANSPORTED TO ICU WITH MOVEMENT THERAPIST IN PLACE VIA STRETCHER. PATIENT TRANSPORTED BY RICARDO DUARTE.
--- NOTE | 2017-08-17 14:15 | NUR ---
PT ARRIVED TO THE UNIT VIA STRETCHER, PT MOVED SELF FROM STRETCHER TO WEIGH BED, PT A & O X3, PERRL, HR 72, RESP. 20, BP 84/54, O2 97% ON 2L VIA, LUNG SOUNDS DIMINISHED IN BASES, 20G LAC IV WITH 1/2 NS INFUSING AT PERSCIBED RATE, NO REDNESS OF SWELLING AT SITE, SKIN WARM & DRY, STRONG RADIAL & PEDAL PULSES, 2+ BILAT LEG EDEMA, MONITORING EQUIPMENT AND CALL TELLO SYSTEM EXPLAINED TO PT, PT VERBALIZED UNDERSTANDING, ADMISSION ASSESSMENT COMPLETE, SEE INTERVENTIONS, SAFETY MEASURES INTRODUCED, CALL TELLO WITHIN REACH
--- NOTE | 2017-08-17 15:15 | NUR ---
SETUP ASSISTANCE PROVIDED WITH LUNCH TRAY
--- NOTE | 2017-08-17 17:05 | NUR ---
PT LAYING IN BED RESTING AND WATCHING TV, PT VERBALIZES NO COMPLAINTS, CALL TELLO WITHIN REACH
--- NOTE | 2017-08-17 17:35 | NUR ---
DR WEIR AT BEDSIDE DISCUSSING PLAN OF CARE
--- NOTE | 2017-08-17 17:45 | NUR ---
SETUP ASSISTANCE PROVIDED WITH PM MEAL
[2017-08-17 18:28] LABS: HEMATOCRIT 32.2 % (39.0-50.0); HEMOGLOBIN 10.2 g/dl (14.0-18.0); IMMATURE GRANULOCYTES 0.7 % (0.0-1.0); MEAN CELL VOLUME 89.4 fL CALC (80.0-100.0); MEAN CORPUSCULAR HGB 28.3 pG CALC (26.0-32.0); MEAN CORPUSCULAR HGB CONC 31.7 g/L CALC (32.0-36.0); NEUT# 4.79 thou/uL (1.82-7.42); RED BLOOD COUNT 3.6 mill/uL (4.70-6.10)
[2017-08-17 18:40] LABS: ANION GAP 13 (6-22 (CALC)); BUN 30 mg/dL (8-23); BUN/CREATININE RATIO 27 (12-20 (CALC)); CALCIUM 8.6 mg/dL (8.4-10.2); CARBON DIOXIDE 32 mmol/l (22-30); CHLORIDE 91 mmol/l (95-108); CREATININE 1.1 mg/dL (0.7-1.3); GFR > 60 ML/MIN (>=60 (CALC)); GFR FOR AFR.AMER. > 60 ML/MIN (>=60 (CALC)); GLUCOSE 134 mg/dL (82-115); POTASSIUM 4.3 mmol/l (3.5-5.1); SODIUM 132 mmol/l (137-146)
--- NOTE | 2017-08-17 19:15 | NUR ---
awake. no acute pain. o2 cont per nc. clinical applications manager shows a fib. #20 lfa 1/2ns infusing @ [id number]. po fluids taken well. voids per urinal. fall precautions cont. speaks a lot about pain, anxiety, wifes future & frequent admissions. pt reassured.
--- NOTE | 2017-08-17 20:45 | NUR ---
dilaudid 2mg ivp per request for lt chest pain.
--- NOTE | 2017-08-17 22:00 | NUR ---
awakens easily. routine pain med given. no distress.
--- NOTE | 2017-08-17 22:30 | NUR ---
lab here. blood drawn.
[2017-08-18] VITALS (8 sets, daily range): BP systolic 105–128; BP diastolic 62–81
--- NOTE | 2017-08-18 00:15 | NUR ---
rt here. ekg obtained.
--- NOTE | 2017-08-18 02:00 | NUR ---
resting quietly. resps even & unlabored. no resp distress.
--- NOTE | 2017-08-18 04:00 | NUR ---
lab here. blood drawn.
[2017-08-18 04:25] LABS: HEMATOCRIT 32.6 % (39.0-50.0); HEMOGLOBIN 10.4 g/dl (14.0-18.0); IMMATURE GRANULOCYTES 0.9 % (0.0-1.0); MEAN CELL VOLUME 89.3 fL CALC (80.0-100.0); MEAN CORPUSCULAR HGB 28.5 pG CALC (26.0-32.0); MEAN CORPUSCULAR HGB CONC 31.9 g/L CALC (32.0-36.0); NEUT# 4.46 thou/uL (1.82-7.42); RED BLOOD COUNT 3.65 mill/uL (4.70-6.10); RED CELL DISTRI WIDTH 14.9 % (11.5-15.5)
[2017-08-18 04:37] LABS: ALBUMIN 3.1 g/dL (3.2-5.0); ALKALINE PHOSPHATASE 70 u/l (38-126); ANION GAP 13 (6-22 (CALC)); BILIRUBIN, TOTAL 0.4 mg/dL (0.0-1.4); BUN 24 mg/dL (8-23); BUN/CREATININE RATIO 22 (12-20 (CALC)); CALCIUM 8.7 mg/dL (8.4-10.2); CARBON DIOXIDE 33 mmol/l (22-30); CHLORIDE 92 mmol/l (95-108); CREATININE 1.1 mg/dL (0.7-1.3); GFR > 60 ML/MIN (>=60 (CALC)); GFR FOR AFR.AMER. > 60 ML/MIN (>=60 (CALC)); GLUCOSE 140 mg/dL (82-115); SGOT/AST 14 u/l (19-48); SGPT/ALT 33 u/l (11-66); SODIUM 135 mmol/l (137-146); TOTAL PROTEIN 5.5 g/dL (6.3-8.2)
--- NOTE | 2017-08-18 04:40 | NUR ---
rt here. ekg obtained.
--- NOTE | 2017-08-18 06:00 | NUR ---
awake. watching tv. no resp distress. o2 cont.
--- NOTE | 2017-08-18 06:35 | NUR ---
c/o anxiety. assisted to bedside chair. no resp diff. sao2 96%.
--- NOTE | 2017-08-18 06:45 | NUR ---
REPORT RECEIVED FROM SYED GUEVARA. PT OOB AND IN CHAIR. ALERT AND ORIENTATED X3. PT VOICES NO CONCERN AT THIS TIME. VSS. CALL LIGHT WITHIN REACH. WILL CONTINUE TO MONITOR.
--- NOTE | 2017-08-18 07:00 | NUR ---
PT OFF FLOOR AT THIS TIME FOR RADIOLOGY PROCEDURE, STABLE AT TIME OF DEPARTURE.
--- NOTE | 2017-08-18 08:58 | NUR ---
[facility] NOTIFIED OF TRANSFER, SPOKE WITH [employer] CIRCULATION ASSISTANT. WILL CALL BACK WITH AVAILABLE BED.
--- NOTE | 2017-08-18 09:11 | NUR ---
PT ASSIGNED ROOM 284.
--- NOTE | 2017-08-18 10:10 | NUR ---
REPORT GIVEN TO RICARDO PATEL. PT UPDATED TO ROOM TRANSFER, STATES UNDERSTANDING. MEDICATIONS REVIEWED, WILL MEDICATE WITH XANAX PRIOR TO TRANSFER, PT AGREES. CALL LIGHT WITHIN REACH. INSTRUCTED PT TO CALL FOR ASSISTANCE, STATES UNDERSTANDING.
--- NOTE | 2017-08-18 11:10 | NUR ---
PT. ARRRIVED TO FLOOR VIA WC ACCOMPANIED BY RICARDO BLAND OF ICU; PT.APPEARS TO BE IN GOOD CONDITION, NO C/O PAIN OR SOB AT THIS TIME; PT. V/S ASSESSED AND ORIENTED TO ROOM,CALL SYSTEM,TV,LIGHTS. WILL FOLLOW-UP W/ASSESMENT AND MEDICATIONS ORDERED. O2@2LHUMIDIFIED NC IS ON PT.AND CALL LIGHT IS W/IN REACH. PT.LEFT SITTING UPRIGHT IN RECLINER WATCHING TV
--- NOTE | 2017-08-18 16:44 | NUR ---
PHARMACY ATTEMPTED TO VERIFY HOME MEDS WITH PT, PT SAYS HIS ADMINISTERS THE MEDICATION AND DOES NOT RECALL WHAT HE IS TAKING. PT'S WAS PHONED HOWEVER, SHE REMAINED UNAVAILABLE.
--- NOTE | 2017-08-18 19:00 | NUR ---
RECEIVED CHANGE OF SHIFT REPORT FROM RICARDO PATEL. PATIENT UP TO CHAIR. NO APPARENT ACUTE DISTRESS NOTED AT THIS TIME. WILL CONTINUE TO ONITOR.
--- NOTE | 2017-08-19 | NUR ---
NO APPARENT ACUTE CHANGE NOTED IN PATIENT'S CONDITION AT THIS TIME.
[2017-08-19 03:38] VITALS: BP 114/79
--- NOTE | 2017-08-19 04:00 | NUR ---
NO APPARENT ACUTE CHANGES NOTED IN PATIENT'S CONDITION.
[2017-08-19 06:56] LABS: HEMATOCRIT 36.2 % (39.0-50.0); HEMOGLOBIN 11.6 g/dl (14.0-18.0); IMMATURE GRANULOCYTES 0.9 % (0.0-1.0); MEAN CELL VOLUME 88.9 fL CALC (80.0-100.0); MEAN CORPUSCULAR HGB 28.5 pG CALC (26.0-32.0); NEUT# 5.49 thou/uL (1.82-7.42); RED BLOOD COUNT 4.07 mill/uL (4.70-6.10); RED CELL DISTRI WIDTH 15.1 % (11.5-15.5)
[2017-08-19 07:11] LABS: ALBUMIN 3.8 g/dL (3.2-5.0); ALKALINE PHOSPHATASE 78 u/l (38-126); ANION GAP 18 (6-22 (CALC)); BILIRUBIN, TOTAL 0.6 mg/dL (0.0-1.4); BUN 20 mg/dL (8-23); BUN/CREATININE RATIO 19 (12-20 (CALC)); CALCIUM 9.3 mg/dL (8.4-10.2); CARBON DIOXIDE 31 mmol/l (22-30); CHLORIDE 91 mmol/l (95-108); GFR > 60 ML/MIN (>=60 (CALC)); GFR FOR AFR.AMER. > 60 ML/MIN (>=60 (CALC)); GLUCOSE 109 mg/dL (82-115); POTASSIUM 4.2 mmol/l (3.5-5.1); SGOT/AST 19 u/l (19-48); SGPT/ALT 37 u/l (11-66); SODIUM 136 mmol/l (137-146); TOTAL PROTEIN 6.5 g/dL (6.3-8.2)
[2017-08-19 07:57] VITALS: BP 135/57
--- NOTE | 2017-08-19 08:07 | NUR ---
DR. WEIR IN TO SEE PT; PLAN OF CARE DISCUSSED
[2017-08-19] MEDS ORDERED: OXYCODONE15 MG PO (08:34)
[2017-08-19] MEDS ORDERED: ALPRAZOLAM1 MG PO (08:35)
--- NOTE | 2017-08-19 08:45 | NUR ---
PT MEDICATED FOR C/O ANXIETY AND LEFT SIDE CHEST PAIN 01/28; O2 2L VIA NC; CALL TELLO WITHIN REACH; WILL CONTINUE TO MONITOR.
--- NOTE | 2017-08-19 09:03 | NUR ---
PT AGREE FOR AM DISCHARGE, STATES "IM GOING TO CALL MY RIGHT NOW." DISCHARGE PAPERWORK PROCESSED, RICARDO FERGUSON. MADE AWARE OF COMPLETION.
--- NOTE | 2017-08-19 10:07 | NUR ---
Discharge instructions given. Patient verbalizes understanding of same. Discharged in stable condition via Wheelchair to Home with family. All belongings sent with pt.
== END 2017-08-19 10:03 | disposition home or self-care (01) | DRG 315 ==
LOC: ED 10:31 → ED-I 12:16 → ED 12:56 → ICU 12:57 → MS2 08-18 11:01
PROVIDERS: Emergency Medicine; ADMIT Internal Medicine Geriatric Medicine; ATTEND Internal Medicine Geriatric Medicine
DX: I95.9 Hypotension, unspecified (principal); C79.9 Secondary malignant neoplasm of unspecified site; I11.0 Hypertensive heart disease with heart failure; I50.22 Chronic systolic (congestive) heart failure; E87.1 Hypo-osmolality and hyponatremia; C34.32 Malignant neoplasm of lower lobe, left bronchus or lung; G89.3 Neoplasm related pain (acute) (chronic); I25.10 Atherosclerotic heart disease of native coronary artery without angina pectoris; K21.9 Gastro-esophageal reflux disease without esophagitis; F41.9 Anxiety disorder, unspecified; E11.9 Type 2 diabetes mellitus without complications; Z86.711 Personal history of pulmonary embolism; J44.9 Chronic obstructive pulmonary disease, unspecified; I25.5 Ischemic cardiomyopathy; I48.91 Unspecified atrial fibrillation; Z96.659 Presence of unspecified artificial knee joint; Z90.2 Acquired absence of lung [part of]; Z92.3 Personal history of irradiation; Z95.5 Presence of coronary angioplasty implant and graft; Z92.21 Personal history of antineoplastic chemotherapy

== ENCOUNTER 2017-08-25 08:58 | Emergency (ER) | payer MEDICARE, BC ==
[~2017-08-25] VITALS: Ht 180.3 cm; Wt 136.0 kg
[~2017-08-25 08:58] MED LIST changes: +ALPRAZOLAM1 MG PO; +OXYCODONE15 MG PO
[2017-08-25 09:37] LABS: HEMATOCRIT 32.8 % (39.0-50.0); HEMOGLOBIN 10.7 g/dl (14.0-18.0); IMMATURE GRANULOCYTES 1.3 % (0.0-1.0); MEAN CORPUSCULAR HGB 28.4 pG CALC (26.0-32.0); MEAN CORPUSCULAR HGB CONC 32.6 g/L CALC (32.0-36.0); NEUT# 7.17 thou/uL (1.82-7.42); RED BLOOD COUNT 3.77 mill/uL (4.70-6.10); RED CELL DISTRI WIDTH 15.2 % (11.5-15.5)
[2017-08-25 09:57] LABS: ALBUMIN 3.7 g/dL (3.2-5.0); ALKALINE PHOSPHATASE 74 u/l (38-126); AMYLASE 56 u/l (30-110); ANION GAP 15 (6-22 (CALC)); BILIRUBIN, TOTAL 0.6 mg/dL (0.0-1.4); BUN 33 mg/dL (8-23); BUN/CREATININE RATIO 25 (12-20 (CALC)); CALCIUM 9.4 mg/dL (8.4-10.2); CARBON DIOXIDE 33 mmol/l (22-30); CHLORIDE 85 mmol/l (95-108); CREATININE 1.3 mg/dL (0.7-1.3); GFR 54 ML/MIN (>=60 (CALC)); GFR FOR AFR.AMER. > 60 ML/MIN (>=60 (CALC)); GLUCOSE 143 mg/dL (82-115); LIPASE 182 u/l (23-300); POTASSIUM 4.7 mmol/l (3.5-5.1); SGOT/AST 21 u/l (19-48); SGPT/ALT 36 u/l (11-66); SODIUM 129 mmol/l (137-146); TOTAL PROTEIN 6.6 g/dL (6.3-8.2)
[2017-08-25 10:10] LABS: INTERNATIONAL NORMALIZED RATIO 1.1 RATIO (0.7-1.3); PROTHROMBIN TIME 11.9 SECONDS (9.0-12.5)
[2017-08-25 10:11] LABS: MYOGLOBIN 129 ng/mL (0 - 121)
[2017-08-25 10:42] LABS: URINE BILIRUBIN - DIPSTICK NEGATIVE (NEGATIVE); URINE BLOOD DIPSTICK NEGATIVE (NEGATIVE); URINE CLARITY CLEAR; URINE COLOR YELLOW; URINE GLUCOSE - DIPSTICK NEGATIVE (NEGATIVE); URINE KETONE NEGATIVE (NEGATIVE); URINE LEUK ESTERASE NEGATIVE (NEGATIVE); URINE NITRITE - DIPSTICK NEGATIVE (Negative); URINE PH 6.5 (4.5-8.0); URINE PROTEIN - DIPSTICK NEGATIVE (NEG-TRACE); URINE SPECIFIC GRAVITY <=1.005; URINE UROBILINOGEN - DIPSTICK 0.2 E.U./dL (0.2)
[2017-08-25] MEDS ORDERED: DURAGESIC100 MCG/HR TD (11:16)
[2017-08-25 11:34] VITALS: BP 89/50
== END 2017-08-25 11:48 | disposition home or self-care (01) ==
LOC: ED 08:58
PROVIDERS: Emergency Medicine
DX: C34.32 Malignant neoplasm of lower lobe, left bronchus or lung (principal); G89.3 Neoplasm related pain (acute) (chronic); I10 Essential (primary) hypertension; J44.9 Chronic obstructive pulmonary disease, unspecified; R53.81 Other malaise; R53.1 Weakness; I48.91 Unspecified atrial fibrillation; E11.9 Type 2 diabetes mellitus without complications

== ENCOUNTER 2017-08-26 22:29 | Emergency (ER) | payer MEDICARE, BC ==
[~2017-08-26] VITALS: Ht 180.3 cm; Wt 125.0 kg
[~2017-08-26 22:29] MED LIST changes: +DURAGESIC100 MCG/HR TD
[2017-08-26 23:29] LABS: URINE BILIRUBIN - DIPSTICK NEGATIVE (NEGATIVE); URINE BLOOD DIPSTICK NEGATIVE (NEGATIVE); URINE CLARITY CLEAR; URINE COLOR YELLOW; URINE GLUCOSE - DIPSTICK NEGATIVE (NEGATIVE); URINE KETONE NEGATIVE (NEGATIVE); URINE LEUK ESTERASE NEGATIVE (NEGATIVE); URINE NITRITE - DIPSTICK NEGATIVE (Negative); URINE PROTEIN - DIPSTICK NEGATIVE (NEG-TRACE); URINE SPECIFIC GRAVITY <=1.005; URINE UROBILINOGEN - DIPSTICK 0.2 E.U./dL (0.2)
[2017-08-26 23:30] LABS: HEMATOCRIT 35.7 % (39.0-50.0); HEMOGLOBIN 11.9 g/dl (14.0-18.0); IMMATURE GRANULOCYTES 0.7 % (0.0-1.0); MEAN CORPUSCULAR HGB 28.7 pG CALC (26.0-32.0); MEAN CORPUSCULAR HGB CONC 33.3 g/L CALC (32.0-36.0); NEUT# 8.4 thou/uL (1.82-7.42); RED BLOOD COUNT 4.15 mill/uL (4.70-6.10); RED CELL DISTRI WIDTH 15.5 % (11.5-15.5)
[2017-08-26 23:49] LABS: ALBUMIN 4.2 g/dL (3.2-5.0); ALKALINE PHOSPHATASE 89 u/l (38-126); ANION GAP 17 (6-22 (CALC)); BILIRUBIN, TOTAL 0.8 mg/dL (0.0-1.4); BUN 29 mg/dL (8-23); BUN/CREATININE RATIO 25 (12-20 (CALC)); CALCIUM 9.6 mg/dL (8.4-10.2); CARBON DIOXIDE 32 mmol/l (22-30); CHLORIDE 82 mmol/l (95-108); CREATININE 1.2 mg/dL (0.7-1.3); GFR 59 ML/MIN (>=60 (CALC)); GFR FOR AFR.AMER. > 60 ML/MIN (>=60 (CALC)); GLUCOSE 95 mg/dL (82-115); POTASSIUM 4.2 mmol/l (3.5-5.1); SGOT/AST 29 u/l (19-48); SGPT/ALT 37 u/l (11-66); SODIUM 127 mmol/l (137-146); TOTAL PROTEIN 7.4 g/dL (6.3-8.2)
[2017-08-27 00:53] VITALS: BP 112/76
== END 2017-08-27 01:16 | disposition home or self-care (01) ==
LOC: ED 22:29
PROVIDERS: Emergency Medicine
DX: R41.82 Altered mental status, unspecified (principal); E87.1 Hypo-osmolality and hyponatremia; C34.32 Malignant neoplasm of lower lobe, left bronchus or lung; C78.89 Secondary malignant neoplasm of other digestive organs; F41.9 Anxiety disorder, unspecified; I10 Essential (primary) hypertension; E11.9 Type 2 diabetes mellitus without complications; I48.91 Unspecified atrial fibrillation

== ENCOUNTER → 2017-09-02 11:48 | Inpatient (IN) | payer MEDICARE, BC ==
[2017-08-28 09:47] VITALS: BP 116/81
--- NOTE | 2017-08-28 10:00 | NUR ---
PT TRANSFERRED TO ICU BED 6 VIA BED, FROM MED SURG, PT ALERT AND ORIENTED, ADMISSION ASSESSMENT COMPLETED SEE INTERVENTIONS, PT STATES HE CAME TO HOSPITAL RELATED TO PAIN CONTROL, HAS HAD TROUBLE CONTROLLING PAIN RELATED TO CANCER DIAGNOSIS WORSENING IN LAST 5-6 WEEKS, ALSO HAS TROUBEL WITH HYPOTENSION (POSSIBLY SECONDARY TO NARCOTIC INTAKE FOR PAIN CONTROL) PT UNSURE ABOUT DETAILS OF HIS CANCER STATES HIS KNOW ALL THE DETAILS, SUPPOSED TO FOLLOW UP AT [facility] HIS APPT IN ON August, LUNGS ARE DIMINSHED WITH EXERTIONAL SOB, INSTRUCTED TO KEEP O2 ON, VAIBHAV READING A FIB RATE IN THE 80'S, BP STABLE AT THIS TIME WITH PAIN CONTROLLED PER PT, ORIENTED TO ROOM AND UNIT, 22G IV SITE NOTED IN R HAND/WRIST, SAFETY MEASURES INTRODUCED, CALL TELLO WITHIN REACH, ENCOURAGED TO CALL FOR ANY NEEDED ASSISTANCE.
--- NOTE | 2017-08-28 10:46 | NUR ---
PT ASSISTED OOB TO RECLINER AT BEDSIDE, REQUIRED 2 MIN ASSIST, TOLERATED ACTIVITY WELL, CALL TELLO WITHIN REACH.
[2017-08-28 11:30] VITALS: BP 119/76
--- NOTE | 2017-08-28 11:50 | NUR ---
PT RESTING, NO NEW COMPLAINTS OFFERED, ENCOURAGED TO CALL FOR ANY NEEDED ASSISTANCE, CALL TELLO WITHIN REACH.
--- NOTE | 2017-08-28 12:45 | NUR ---
PT BACK TO BED WITH SAME ASSIST, NEW DURAGESIC PATCHES PLACED ORDERED, DENIES NEED FOR FURTHER PAIN MEDICATION AT THIS TIME, REPOSITIONS SELF FOR COMFORT, CALL TELLO WITHIN REACH
[2017-08-28 13:30] VITALS: BP 115/65
--- NOTE | 2017-08-28 14:43 | NUR ---
PT RESTING, OFFERS NO COMPLAINTS, MEDICATIONS HELD AT THIS TIME RELATED TO NUMBER OF ANTIHYPERTENSIVES AND BP 115/65 WITH MEDS DU AGAIN IN LESS THAN 7 HOURS, WILL MONITOR BP CLOSELY, DR. WEIR NOTIFIED AND PARAMETERS PROVIDED, CALL TELLO WITHIN REACH
[2017-08-28 16:00] VITALS: BP 107/72
[2017-08-28 16:02] LABS: HEMATOCRIT 33.7 % (39.0-50.0); HEMOGLOBIN 11.2 g/dl (14.0-18.0); MEAN CORPUSCULAR HGB 28.6 pG CALC (26.0-32.0); MEAN CORPUSCULAR HGB CONC 33.2 g/L CALC (32.0-36.0); NEUT# 6.5 thou/uL (1.82-7.42); RED BLOOD COUNT 3.92 mill/uL (4.70-6.10); RED CELL DISTRI WIDTH 15.5 % (11.5-15.5)
--- NOTE | 2017-08-28 16:05 | NUR ---
pt complains of shortness of breathj, oob to recliner and medicated for anxiety, call benavides within reach, sats 99% on O2, will monitor isauraley.
--- NOTE | 2017-08-28 16:09 | NUR ---
RADIOLOGY AT BEDSIDE FOR CXR ORDERED
--- NOTE | 2017-08-28 16:27 | NUR ---
IN TO SEE PATIENT
[2017-08-28 16:38] LABS: ANION GAP 15 (6-22 (CALC)); BUN 24 mg/dL (8-23); BUN/CREATININE RATIO 21 (12-20 (CALC)); CALCIUM 8.9 mg/dL (8.4-10.2); CARBON DIOXIDE 33 mmol/l (22-30); CHLORIDE 82 mmol/l (95-108); CREATININE 1.2 mg/dL (0.7-1.3); GFR 59 ML/MIN (>=60 (CALC)); GFR FOR AFR.AMER. > 60 ML/MIN (>=60 (CALC)); GLUCOSE 140 mg/dL (82-115); POTASSIUM 3.8 mmol/l (3.5-5.1); SODIUM 126 mmol/l (137-146)
--- NOTE | 2017-08-28 17:12 | NUR ---
PT REMAIN SITTING UP IN RELCINER, NO FURTHER COMPLAINTS OF SOB OR DISTRESS, CALL TELLO WITHIN REACH
--- NOTE | 2017-08-28 17:50 | NUR ---
PT REMAINS SITTING UP IN RECLINER, AT BEDSIDE, SET UP ASSIST PROVIDED FOR PM MEAL
--- NOTE | 2017-08-28 18:50 | NUR ---
REPORT RECEIVED FROM ANÍBAL GEE RN. INTRODUCED SELF TO PT, NO DISTRESS NOTED, PRODUCTIVE COUGH NOTED, PROVIDED A EMESIS BAG PER REQUEST, DENIES PAIN OR SOB, ON 3LPM O2 VIA NC HUMIDIFIED, HAS A 22G ON RIGHT HAND, SALINE LOCK, FLUSHES WELL, IV SITE IS INTACT, WILL FOLLOW UP ASSESSMENT AND PLAN OF CARE, DENIES NEEDS AT THIS TIME, ENCOURAGED TO CALL IF NEEDED. CALL TELLO AT REACH.
[2017-08-28 20:00] VITALS: BP 117/67
[2017-08-28 22:00] VITALS: BP 125/77
[2017-08-29] VITALS (10 sets, daily range): BP systolic 106–122; BP diastolic 56–91
--- NOTE | 2017-08-29 00:10 | NUR ---
PT SITTING UP IN THE RECLINER, NO DISTRESS NOTED, HOWEVER PT REPORTS FEELING ANXIOUS, REQUESTED XANAX, MEDICATED PER DM ORDERS, VSS, AFEBRILE, AFIB ON MONITOR, HR 105-115, WILL CONTINUE TO MONITOR. CALL TELLO AT REACH.
--- NOTE | 2017-08-29 02:22 | NUR ---
PT LYING IN HIGH FULLER'S POSITION, VOICES NO COMPLAINTS AT THIS TIME, RESP ARE EVEN AND UNLABORED, MOUTH BREATHER WHEN SLEEPING WITH EYES CLOSED. VSS, AFIB ON MONITOR, HR 88, CALL TELLO AT REACH.
--- NOTE | 2017-08-29 05:50 | NUR ---
ASSISTED PT OOB TO USE URINAL, VOIDED 300 ML OF CLEAR YELLOW URINE, SITTING UP IN THE RECLINER, PRODUCTIVE COUGH NOTED, SPUTUM IS CLEAR, THIN, VSS, MONITOR SHOWS AFIB ON MONITOR 115HR, MILD DISTRESS NOTED, SITTING ON TRIPOD POSITION, USING ACCESSORY MUSCLES, INSTRUCTED ON PURSED LIP BREATHING, FOLLOW COMMANDS, AFTER FIVE MINS, BREATHING IS EVEN AND UNLABORED. WILL CONTINUE TO MONITOR, DENIES PAIN. CALL TELLO AT REACH.
[2017-08-29 06:28] LABS: HEMATOCRIT 37.7 % (39.0-50.0); HEMOGLOBIN 12.5 g/dl (14.0-18.0); IMMATURE GRANULOCYTES 0.9 % (0.0-1.0); MEAN CELL VOLUME 86.1 fL CALC (80.0-100.0); MEAN CORPUSCULAR HGB 28.5 pG CALC (26.0-32.0); MEAN CORPUSCULAR HGB CONC 33.2 g/L CALC (32.0-36.0); NEUT# 6.27 thou/uL (1.82-7.42); RED BLOOD COUNT 4.38 mill/uL (4.70-6.10); RED CELL DISTRI WIDTH 15.6 % (11.5-15.5)
--- NOTE | 2017-08-29 06:45 | NUR ---
AT THIS TIME CALLED OFFICE SERVICES FOR A CONSULT WITH DR. MACK, FOR A PORTACATH PLACEMENT, SPOKE TO ROXANE AND PROVIDED ALL INFORMATION NEEDED.
[2017-08-29 06:47] LABS: ALBUMIN 4.1 g/dL (3.2-5.0); ALKALINE PHOSPHATASE 90 u/l (38-126); ANION GAP 17 (6-22 (CALC)); BILIRUBIN, TOTAL 0.9 mg/dL (0.0-1.4); BUN 20 mg/dL (8-23); BUN/CREATININE RATIO 19 (12-20 (CALC)); CALCIUM 9.4 mg/dL (8.4-10.2); CARBON DIOXIDE 32 mmol/l (22-30); CHLORIDE 84 mmol/l (95-108); GFR > 60 ML/MIN (>=60 (CALC)); GFR FOR AFR.AMER. > 60 ML/MIN (>=60 (CALC)); GLUCOSE 97 mg/dL (82-115); POTASSIUM 4.1 mmol/l (3.5-5.1); SGOT/AST 23 u/l (19-48); SGPT/ALT 39 u/l (11-66); SODIUM 128 mmol/l (137-146); TOTAL PROTEIN 6.8 g/dL (6.3-8.2)
--- NOTE | 2017-08-29 07:45 | NUR ---
PATIENT SITTING UP IN CHAIR. ASSESSMENT COMPLETED AT THIS TIME. RESP EVEN AND UNLABORED. NO S/S OF DISTRESS NOTED. PATIENT DENIES ANY NEEDS OR PAIN AT THIS TIME. PATIENT REPORTS THAT HE HAD A GOOD NIGHT BUT REMEMBERS PERIODS OF CONFUSION AND HAD AN ACCIDENT THAT HE THINKS IS RELATED TO THE PAIN MEDICATIONS. CALL LIGHT IN REACH. ENCOURAGED TO CALL FOR ANY NEEDS.
--- NOTE | 2017-08-29 10:22 | NUR ---
PATIENT IN BED SLEEPING. RESP EVEN AND UNLABORED. NO S/S OF DISTRESS NOTED. VISITOR AT BEDSIDE.
--- NOTE | 2017-08-29 16:08 | NUR ---
PATIENT IN BED. VISITOR AT BEDSIDE. RESP EVEN AND UNLABORED. NO S/S OF DISTRESS NOTED. PATIENT DENIES ANY NEEDS OR PAIN AT THIS TIME. CALL LIGHT IN REACH. ENCOURAGED TO CALL FOR ANY NEEDS.
--- NOTE | 2017-08-29 19:00 | NUR ---
awake. denies distress. o2 cont per nc. cardiac cath technologist shows a fib. #22 rt hand saline lock. po fluids taken well. voided per urinal.
--- NOTE | 2017-08-29 19:20 | NUR ---
to xray per wc for 2v cxr.
--- NOTE | 2017-08-29 19:30 | NUR ---
returned from xray. nissa well.
--- NOTE | 2017-08-29 22:00 | NUR ---
eyes closed. no resp distress. compliance monitor shows a fib.
[2017-08-30] VITALS (11 sets, daily range): BP systolic 80–130; BP diastolic 58–80
--- NOTE | 2017-08-30 00:01 | NUR ---
assisted to bathroom per request for bm. nissa well. no resp diff. no c/o pain voiced.
--- NOTE | 2017-08-30 02:00 | NUR ---
resting quietly. resps even & unlabored. no apparent distress.
--- NOTE | 2017-08-30 04:00 | NUR ---
lab here. blood drawn.
[2017-08-30 04:42] LABS: HEMATOCRIT 36.8 % (39.0-50.0); HEMOGLOBIN 12.1 g/dl (14.0-18.0); IMMATURE GRANULOCYTES 0.7 % (0.0-1.0); MEAN CELL VOLUME 86.6 fL CALC (80.0-100.0); MEAN CORPUSCULAR HGB 28.5 pG CALC (26.0-32.0); MEAN CORPUSCULAR HGB CONC 32.9 g/L CALC (32.0-36.0); NEUT# 7.35 thou/uL (1.82-7.42); RED BLOOD COUNT 4.25 mill/uL (4.70-6.10); RED CELL DISTRI WIDTH 15.5 % (11.5-15.5)
[2017-08-30 04:57] LABS: ALBUMIN 3.6 g/dL (3.2-5.0); ALKALINE PHOSPHATASE 81 u/l (38-126); ANION GAP 14 (6-22 (CALC)); BILIRUBIN, TOTAL 0.7 mg/dL (0.0-1.4); BUN 21 mg/dL (8-23); BUN/CREATININE RATIO 19 (12-20 (CALC)); CALCIUM 9.2 mg/dL (8.4-10.2); CARBON DIOXIDE 33 mmol/l (22-30); CHLORIDE 82 mmol/l (95-108); CREATININE 1.1 mg/dL (0.7-1.3); GFR > 60 ML/MIN (>=60 (CALC)); GFR FOR AFR.AMER. > 60 ML/MIN (>=60 (CALC)); GLUCOSE 104 mg/dL (82-115); SGOT/AST 21 u/l (19-48); SGPT/ALT 36 u/l (11-66); SODIUM 125 mmol/l (137-146)
--- NOTE | 2017-08-30 06:00 | NUR ---
awake. watching tv. no c/o voiced.
--- NOTE | 2017-08-30 07:25 | NUR ---
PT ALERT AND ORIENTED, SITTING UP IN RECLINER, AM ASSESSMENT COMPLETED SEE INTERVENTIONS, LUNGS CLEAR/DIMINSHED WITH EXERTIONAL SOB, INSTRUCTED TO KEEP O2 ON AND REST PRN FOR SOB, TELE READING A FIB RATE IN THE 70-80'S, BP STABLE AT THIS TIME WITH PAIN CONTROLLED PER PT, STATES HE HAD A LARGE BM LAST PM/EARLY AM DENIES NAUSEA, PT COMPLAINS OF "DISCOMFORT TO BOTTOM/BUTT/RECTAL AREA STATES I DON'T KNOW IF I HAVE HEMMRHOIDS OR IF I HAVE A SORE, UPON INSPECTION PT HAS 2 SMALL (0.5 X 0.5 X <0.10 CM) SHEARED AREAS NOTED NEAR GLUTEAL CREVICE ON EACH CHEEK, APPEARS TO BE MORE FROM SHEARING THAN PRESSURE, PT HAS 22G IV SITE NOTED IN R HAND/WRIST SALINE LOCKED, SAFETY MEASURES REINFORCED, CALL TELLO WITHIN REACH, ENCOURAGED TO CALL FOR ANY NEEDED ASSISTANCE.
--- NOTE | 2017-08-30 08:15 | NUR ---
PT TOLERATED AM MEAL WELL, MODERATE INTAKE, REMAINS SITTING UP IN RECLINER, EDUCATED REGARDING FLUID RESTRICTION (FOR LOW SODIUM LEVEL) VERBALIZES UNDERSTANDING, CALL TELLO WITHIN REACH, WILL CONTINUE TO MONITOR.
--- NOTE | 2017-08-30 08:45 | NUR ---
pt up to recliner for afternoon meal, set up assist provided, call benavides within reach
--- NOTE | 2017-08-30 09:40 | NUR ---
PT ON BEDSIDE COMMODE, CONTINENT OF SM/MOD FIRM BROWN STOOL, PROVIDES OWN SELVIN CARE, SOME DENUSION NOTED TO INNER THIGH SKIN, HYDROCOLLOID SPOT DRESSINGS APPLIED TO SHEARING AREAS ON BUTTOCKS, PT BACK TO RECLINER WITH AT BEDSIDE, CALL TELLO WITHIN REACH, DENIES NEED FOR FURTHER PAIN MEDICATION AND ANXIETY MEDS, WILL CONTINUE TO MONITOR
--- NOTE | 2017-08-30 10:05 | NUR ---
PT ASSISTED BACK TO BED WITH STAND BY ASSIST, TOLERATES ACTIVITY WELL, REMAINS AT BEDSIDE, DISCUSSION WITH SPOUSE AND PATIENT REGARDING FREQUENT ADMISSIONS AND QUESTION ABOUT ANXIETY AT HOME, STATES THAT SHE THINKS HE PANICS BECAUSE HE IS WORRIED SOMETHING WILL HAPPEN AND NO ONE WILL BE THERE TO "FIX IT" OR "HELP HIM" (MEDICAL [employer]), AND THEN IT "JUST GETS WORSE FROM THERE", CALL ELISHA FELDMAN, WILL CONTINUE TO MONITOR.
--- NOTE | 2017-08-30 10:33 | NUR ---
PT RESTING IN BED, AT BEDSIDE, CALL TELLO WITHIN REACH, WILL CONTINUE TO MONITOR
--- NOTE | 2017-08-30 11:24 | NUR ---
ACCU CHECK WITHIN NORMAL LIMITS, NO COVERAGE REQUIRED, CALL TELLO WITHIN REACH, WILL CONTINUE TO MONITOR.
--- NOTE | 2017-08-30 12:40 | NUR ---
PT RESTING IN BED, ALERT AND ORIENTED OFFERS NO COMPLAINTS, WILL CONTINUE TO MONITOR.
--- NOTE | 2017-08-30 13:41 | NUR ---
PT RESTING IN BED, DOZES INTERMITTENLY, OFFERS NO NEW COMPLAINTS, PAIN CONTROLLED AT THIS TIME PER PT WILL CONTINUE TO MONITOR.
--- NOTE | 2017-08-30 14:24 | NUR ---
VISITOR AT BEDSIDE, OFFERS NO NEW COMPLAINTS, WILL CONTINUE TO MONITOR
--- NOTE | 2017-08-30 16:00 | NUR ---
PT REMAINS SITTING UP IN RECLINER, AT BEDSIDE, COMPLAINS OF GENERAL "NOT FEELING WELL THINKS HE MIGHT BE ANXIOUS, WILL MEDICATE ORDERED.
[2017-08-30 16:43] LABS: ANION GAP 16 (6-22 (CALC)); BUN 24 mg/dL (8-23); BUN/CREATININE RATIO 20 (12-20 (CALC)); CALCIUM 9.3 mg/dL (8.4-10.2); CARBON DIOXIDE 32 mmol/l (22-30); CHLORIDE 80 mmol/l (95-108); CREATININE 1.2 mg/dL (0.7-1.3); GFR 59 ML/MIN (>=60 (CALC)); GFR FOR AFR.AMER. > 60 ML/MIN (>=60 (CALC)); GLUCOSE 83 mg/dL (82-115); POTASSIUM 4.4 mmol/l (3.5-5.1); SODIUM 124 mmol/l (137-146)
--- NOTE | 2017-08-30 16:45 | NUR ---
ACCU CHECK 97,NO COVERAGE REQUIRED, REMAINS AT BEDSIDE, OFFERS NO NEW COMPLAINTS, CALL TELLO WITHIN REACH.
--- NOTE | 2017-08-30 17:26 | NUR ---
HYDROCOLLOID SPOTS FOUND DISLODGED, REMOVED BY PT'S SPOUSE, BARRIER CREAM APPLIED, CALL TELLO WITHIN REACH, ICE CHIPS PROVIDED FOR MOUTH COMFORT RELATED TO FLUID RESTRICTION, WILL CONTINUE TO MONITOR.
--- NOTE | 2017-08-30 17:50 | NUR ---
SET UP ASSIST PROVIDED FOR PM MEAL, AWARE OF SODIUM LEVEL AND NEW ORDERS REC'D
--- NOTE | 2017-08-30 18:34 | NUR ---
PT ASSISTED ABCK TO BED WITH STAND BY ASSIST, TOLERATES ACTIVITY WELL, CALL TELLO WITHIN REACH
--- NOTE | 2017-08-30 19:00 | NUR ---
awakens easily. no resp diff or pain @ present. o2 cont per nc. engine monitor shows a fib. #22 rt hand saline lock. fluid restrictions cont. voids per urinal. fall precautions cont.
--- NOTE | 2017-08-30 21:30 | NUR ---
awake. sitting on side of bed. c/o "don't feel well, head feels funny, feel lighthheaded." vss monitor and storage bin tender shows a fib. assisted to bedside chair. o2 cont.
--- NOTE | 2017-08-30 22:00 | NUR ---
remains in bedside chair dozing. no distress.
--- NOTE | 2017-08-30 23:00 | NUR ---
awakened & assisted to bed. no further c/o. athletic monitor shows a fib.
[2017-08-31] VITALS (7 sets, daily range): BP systolic 95–129; BP diastolic 62–75
--- NOTE | 2017-08-31 00:01 | NUR ---
eyes closed. no distress. o2 cont.
--- NOTE | 2017-08-31 02:00 | NUR ---
resting quietly. resps even & unlabored. no apparent distress.
--- NOTE | 2017-08-31 04:30 | NUR ---
lab here. blood drawn.
[2017-08-31 04:55] LABS: HEMATOCRIT 35.3 % (39.0-50.0); HEMOGLOBIN 11.8 g/dl (14.0-18.0); IMMATURE GRANULOCYTES 0.6 % (0.0-1.0); MEAN CELL VOLUME 85.5 fL CALC (80.0-100.0); MEAN CORPUSCULAR HGB 28.6 pG CALC (26.0-32.0); MEAN CORPUSCULAR HGB CONC 33.4 g/L CALC (32.0-36.0); NEUT# 6.09 thou/uL (1.82-7.42); RED BLOOD COUNT 4.13 mill/uL (4.70-6.10); RED CELL DISTRI WIDTH 15.4 % (11.5-15.5)
[2017-08-31 05:09] LABS: ALBUMIN 3.4 g/dL (3.2-5.0); ALKALINE PHOSPHATASE 73 u/l (38-126); ANION GAP 15 (6-22 (CALC)); BILIRUBIN, TOTAL 0.7 mg/dL (0.0-1.4); BUN 25 mg/dL (8-23); BUN/CREATININE RATIO 22 (12-20 (CALC)); CALCIUM 9.1 mg/dL (8.4-10.2); CARBON DIOXIDE 32 mmol/l (22-30); CHLORIDE 82 mmol/l (95-108); CREATININE 1.2 mg/dL (0.7-1.3); GFR 59 ML/MIN (>=60 (CALC)); GFR FOR AFR.AMER. > 60 ML/MIN (>=60 (CALC)); GLUCOSE 98 mg/dL (82-115); SGOT/AST 22 u/l (19-48); SGPT/ALT 35 u/l (11-66); SODIUM 125 mmol/l (137-146); TOTAL PROTEIN 5.7 g/dL (6.3-8.2)
--- NOTE | 2017-08-31 06:00 | NUR ---
awakens easily. meds given.
--- NOTE | 2017-08-31 07:20 | NUR ---
PT ALERT AND ORIENTED, ASSISTED FROM BED TO SITTING UP IN RECLINER, AM ASSESSMENT COMPLETED SEE INTERVENTIONS, LUNGS CLEAR/DIMINSHED WITH EXERTIONAL SOB, INSTRUCTED TO KEEP O2 ON AND REST PRN FOR SOB, TELE READING A FIB RATE IN THE 70-80'S, BP STABLE AT THIS TIME WITH PAIN CONTROLLED PER PT, STATES HE LAST BM YESTERDAY AND PER REPORT HAD SOME NAUSEA LAST PM BUT DENIES NAUSEA AT THIS TIME, PT APPEARS MILDY ANXIOUS REPEATS "I HAD A BAD NIGHT LAST NIGHT" WHEN ASKED WHY PT MUMBLES STATING "IT HAD TO HAVE BEEN MEDICAL, I DIDN'T KNOW WHERE I WAS, I HAD TO KEEP ASKING THE NURSE WHERE I WAS, I WAS SOB AND SOMETHING JUST WASN'T RIGHT" SPOKE WITH PATIENT REGARDING ANXIETY RELATED TO POSSIBLE DISCHARGE AND HIS ANXIETY AT HOME. PT DENIES THIS REPEATING "IT HAD TO BE MEDICAL", EMOTIONAL SUPPORT PROVIDED, WILL NOTIFY MD ON AM ROUNDS, PT HAS 22G IV SITE NOTED IN R HAND/WRIST SALINE LOCKED, SAFETY MEASURES REINFORCED, CALL TELLO WITHIN REACH, ENCOURAGED TO CALL FOR ANY NEEDED ASSISTANCE.
--- NOTE | 2017-08-31 08:15 | NUR ---
PT RESTING SET UP ASSIST PROVIDED FOR AM MEAL EARLIER, APPETITE FAIR, FLUID RESTRICTION OBSERVED, URINAL WITHIN REACH, DENIES NEED FOR PAIN MGMT, WILL CONTINUE TO MONITOR.
--- NOTE | 2017-08-31 09:09 | NUR ---
PT RESTING IN RECLINER, EDUCATED REGARDING PLAN OFR SHOWER/BATH TODAY, PT VERBALIZES UNDERSTANDING. CALL TELLO WITHIN REACH.
--- NOTE | 2017-08-31 10:31 | NUR ---
PT REMAINS SITTING UP IN RECLINER DOZES INTERMITTENLY, CALL TELLO WITHIN REACH, WILL CONTINUE TO MONITOR.
--- NOTE | 2017-08-31 12:50 | NUR ---
FROM ICU VIA WHEELCHAIR ACCOMPANIED BY ANÍBAL SILVA. TRANSFERRED TO BEDSIDE CHAIR WITH STEADY, SLOW GAIT. EXERTIONAL SHORTNESS OF BREATH NOTED ON O2 VIA NC. DENIES PAIN OR DISCOMFORT. ORIENTED TO ROOM AND CALL SYSTEM. SAFETY PRECAUTIONS REINFORCED. BED IN LOWEST POSITION WITH WHEELS LOCKED. CALL LIGHT WITHIN REACH. ENCOURAGED PT TO CALL FOR ANY NEEDS.
--- NOTE | 2017-08-31 12:54 | NUR ---
PT TRANSFERRED TO ROOM 270 ON MED SURG ORDERED, REPORT CALLED TO MARLI SILVA EARLIER, PT STOOD AND TRANSFERRED TO WHEELCHAIR, ALL BELONGINGS SENT WITH PATIENT. MARLI AT BEDSIDE UPON ARRIVAL.
--- NOTE | 2017-08-31 16:15 | NUR ---
SITTING IN BEDSIDE CHAIR. RESPS EVEN AND UNLABORED ON O2 VIA NC. MEDICATED WITH XANAX 1MG PO FOR C/O ANXIETY AND ZOFRAN 4MG IVP FOR NAUSEA. AT BEDSIDE. CALL LIGHT WITHIN REACH. ENCOURAGED PT AND TO CALL FOR ANY NEEDS.
--- NOTE | 2017-08-31 20:50 | NUR ---
PT APPEARS TO BE SLEEPING IN HIGH FOWLERS POSITION;WOKE PT TO COMPLETE ASSESSMENT AND ADMINISTER SCHEDULED MEDICATIONS;PT DENIES ANY PAIN AT THIS TIME;RESPIRATIONS EVEN AND UNLABORED ON NC;PT APPEARS TO BE SLIGHTLY ANXIOUS,COMFORT MEASURES AND VERBAL CUES PROVIDED;#22G TO RIGHT HAND FLUSHED AND PATENT;BED ALARM ON FOR PT SAFETY;PT DENIES ANY OTHER NEEDS AT THIS TIME;URINAL AT BEDSIDE;CALL LIGHT IN REACH;WILL CONTINUE TO MONITOR
--- NOTE | 2017-08-31 22:07 | NUR ---
PT COMPLAINS OF ANXIETY;PT MEDICATED WITH PRN XANAX 0.5MG AND REPOSITIONED INTO THE RECLINER AT THIS TIME;WILL CONTINUE TO MONITOR
--- NOTE | 2017-08-31 23:30 | NUR ---
PT RESTING IN RECLINER APPEARING DROWSY;PT DENIES ANY PAIN OR NEEDS AT THIS TIME;OXYGEN ON VIA NC AND NON-PRODUCTIVE COUGH NOTED;CALL LIGHT IN REACH;WILL CONTINUE TO MONITOR
[2017-09-01 04:20] VITALS: BP 104/66
--- NOTE | 2017-09-01 04:30 | NUR ---
PT RESTING IN RECLINER;ESEQUIEL GREEN OBTAINING VS AT THIS TIME;PT PLEASANT AND A&O X3;RESPIRATIONS EVEN AND UNLABORED ON NC;PT DENIES ANY PAIN OR NEEDS AT THIS TIME;PT EDUCATED TO CALL FOR ASSISTANCE IF NEEDED;CALL LIGHT IN REACH;WILL CONTINUE TO MONITOR
[2017-09-01 05:51] LABS: ALBUMIN 3.8 g/dL (3.2-5.0); BILIRUBIN, TOTAL 0.7 mg/dL (0.0-1.4); CALCIUM 9.3 mg/dL (8.4-10.2); CREATININE 1.6 mg/dL (0.7-1.3); POTASSIUM 4.1 mmol/l (3.5-5.1); TOTAL PROTEIN 6.3 g/dL (6.3-8.2)
--- NOTE | 2017-09-01 07:55 | NUR ---
PT TRANSPORTED TO HAVE AN XRAY COMPLETED: IV SITE IS FREE FROM REDNESS OR EDEMA. RETURNED AT 0817 VIA WC FAMILY IN THE ROOM. AND WAS HAVING SOB
[2017-09-01 08:20] VITALS: BP 102/61
--- NOTE | 2017-09-01 08:20 | NUR ---
ASSESSMENT IS COMPLETED AFTER PT RETURNED FROM XRAY. IV SITE IS FREE FROM REDNESS OR EDEMA. PT HAS SOB ON EXERTION. CONTINUE TO OBSERVE AND MONITOR.
--- NOTE | 2017-09-01 12:00 | NUR ---
PT HAS BEEN IN THE CHAIR, WANTING SOMETHING FOR HIS NERVES. IV SITE IS FREE FROM REDNESS OR EDEMA.
[2017-09-01 15:37] VITALS: BP 95/63
--- NOTE | 2017-09-01 16:13 | NUR ---
FAMILY IN THE ROOM. NO DISTRESS NOTED. IV SITE IS FREE FROM REDNESS OR EDEMA. CONTINUE TO OSBERVE AND MONITOR.
[2017-09-01 19:21] VITALS: BP 90/52
--- NOTE | 2017-09-01 19:30 | NUR ---
BEDSIDE REPORT RECEIVED FROM SYED DONAHUE. PT SITTING UP IN CHAIR AT THIS TIME. DENIES PAIN CURRENTLY. RESPIRATIONS EVEN AND UNLABORED ON OXYGEN. PLAN OF CARE REVEIWED. PT ENCOURAGED TO VERBALIZE CONCERNS. STATES UNDERSTANDING. VERBALIZES CONCERN ABOUT HIS ANXIETY OVERNIGHT LAST NIGHT. XANAX ORDER EXPLAINED AND OFFERED AT HS. STATES THAT HE WILL REQUEST IT WHEN HE BEGINS TO FEEL ANXIOUS. SAFETY MEASURES IN PLACE. CALL LIGHT WITHIN REACH.
--- NOTE | 2017-09-01 22:26 | NUR ---
PT HAS MODERATE EXCORITATION TO BUTTOCK. CLEANSED AND DUODERM APPLIED. PT REPOSITIONED FROM CHAIR TO BED. STATES THAT HE IS HAVING A HARD TIME BREATHING IN THAT POSITION. MOVED BACK TO CHAIR AND BREATHING TREATMENT GIVEN WITH GOOD EFFECT. WILL CONTINUE TO MONITOR.
[~2017-09-02] VITALS: Ht 180.3 cm; Wt 121.6 kg
--- NOTE | 2017-09-02 04:17 | NUR ---
PT ASLEEP AT THIS TIME. NO SIGNS OF DISTRESS NOTED. RESPIRATIONS EVEN AND UNLABORED. XANAX REQUESTED AT 0200 AND GIVEN WITH GOOD EFFECT. NO CHANGES IN ASSESSMENT NOTED. SAFETY MEASURES IN PLACE. CALL LIGHT WITHIN REACH.
[2017-09-02 06:10] LABS: HEMOGLOBIN 11.9 g/dl (14.0-18.0); IMMATURE GRANULOCYTES 0.7 % (0.0-1.0); MEAN CELL VOLUME 85.5 fL CALC (80.0-100.0); MEAN CORPUSCULAR HGB 28.3 pG CALC (26.0-32.0); MEAN CORPUSCULAR HGB CONC 33.1 g/L CALC (32.0-36.0); NEUT# 8.69 thou/uL (1.82-7.42); RED BLOOD COUNT 4.21 mill/uL (4.70-6.10); RED CELL DISTRI WIDTH 15.4 % (11.5-15.5)
[2017-09-02 06:27] LABS: CALCIUM 9.3 mg/dL (8.4-10.2); CREATININE 1.4 mg/dL (0.7-1.3)
[2017-09-02 07:40] VITALS: BP 109/59
--- NOTE | 2017-09-02 07:40 | NUR ---
ASSESSMENT IS COMPLETED: IV SITE IS FREE FROM REDNESS OR EDEMA. CONTINUE TO OSBERVE AND MONITOR. LEGS ARE +1 EDEMA NOTED.
--- NOTE | 2017-09-02 07:50 | NUR ---
PT IS SITTING UP IN THE CHAIR
[2017-09-02 09:29] VITALS: BP 109/59
--- NOTE | 2017-09-02 11:07 | NUR ---
Discharge med counseling was done today. Talked to (caregiver). Provided a list of continuing meds/discontinuing meds/new neds. Instructed pt to start metolazone 5mg PO QOD after discharge. Pt was on metolazone 2.5mg PO QOD before. Counseling points: can be taken with or without food, best to take it before evening time as it can make pt urinate more, watch out for dizziness or orthostatic hypotension. Pt verbalized understanding. Pt was given an opportunity to ask questions about med.
[~2017-09-02 11:48] MED LIST changes: +METOLAZONE5 MG PO
--- NOTE | 2017-09-02 12:22 | NUR ---
DISCHARGE INSTRUCTIONS GIVEN AND VERBALIZED UNDERSTANDING. IV SITE DISCONTINUED CATHETER INTACT. FAMILY IN THE ROOM, CALLED 'S OFFICE RE: PATCHES FOR PAIN, WILL GIVE A NEW SCRIPT TO FAMILY.
== END | disposition home or self-care (01) | DRG 947 ==
LOC: MS2 08-28 09:16 → ICU 08-28 09:16 → MS2 08-28 09:16 → ICU 08-28 10:00 → MS2 08-28 10:00
PROVIDERS: ADMIT Internal Medicine Geriatric Medicine; ATTEND Internal Medicine Geriatric Medicine
DX: G89.3 Neoplasm related pain (acute) (chronic) (principal); I50.23 Acute on chronic systolic (congestive) heart failure; C78.02 Secondary malignant neoplasm of left lung; I11.0 Hypertensive heart disease with heart failure; I48.91 Unspecified atrial fibrillation; C78.2 Secondary malignant neoplasm of pleura; E87.1 Hypo-osmolality and hyponatremia; C34.90 Malignant neoplasm of unspecified part of unspecified bronchus or lung; I25.10 Atherosclerotic heart disease of native coronary artery without angina pectoris; J44.9 Chronic obstructive pulmonary disease, unspecified; K21.9 Gastro-esophageal reflux disease without esophagitis; E11.9 Type 2 diabetes mellitus without complications; F41.9 Anxiety disorder, unspecified; Z92.3 Personal history of irradiation; Z92.21 Personal history of antineoplastic chemotherapy; Z86.711 Personal history of pulmonary embolism; Z95.5 Presence of coronary angioplasty implant and graft; Z87.891 Personal history of nicotine dependence; I25.5 Ischemic cardiomyopathy; R44.3 Hallucinations, unspecified